=== PATIENT | female | born 1945 | race Caucasian/White ===

== ENCOUNTER 2023-10-12 13:59 | Inpatient (IN) ==
[2023-10-12] MEDS ORDERED: ONDANSETRON 4 MG/2 ML VIAL IV PRN (16:57)
[2023-10-12] MEDS ORDERED: IPRATROPIUM/ALBUTEROL 3 ML AMPUL.NEB NEB PRN (16:57)
[2023-10-12] MEDS: 0.9 % SODIUM CHLORIDE 1,000 ML IV SCH (20:04)
[2023-10-12] MEDS: 0.9 % SODIUM CHLORIDE 10 ML SYRINGE IV SCH (20:10)
[2023-10-12] MEDS: SENNOSIDES 1 TABLET PO SCH (20:17)
[2023-10-12] MEDS: hydrALAZINE 20 MG/ML VIAL IV PRN (20:17)
[2023-10-12] MEDS: LISINOPRIL 10 MG TABLET PO SCH (20:18)
[2023-10-12] MEDS: traZODone HCL 50 MG TABLET PO PRN (20:18)
[2023-10-12] MEDS: DOCUSATE SODIUM 100 MG CAPSULE PO SCH (20:18)
[2023-10-13 06:29] LABS: ALT/SGPT < 5 U/L (<40); AST/SGOT 22 U/L (<32); Albumin 3.5 gm/dL (3.2-5.2); Albumin/Globulin Ratio 1.5 (1.0-2.3); Alkaline Phosphatase 50 U/L (39-117); Bilirubin,Total 0.7 mg/dL (0.1-1.0); Blood Urea Nitrogen 13 mg/dL (8-23); Calcium 8.2 mg/dL (8.6-10.4); Carbon Dioxide 25 mmol/L (22-30); Chloride 100 mmol/L (96-108); Globulin 2.3 gm/dL (2.2-3.7); Glomerular Filtration Rate 82; Glucose 134 mg/dL (70-105)
[2023-10-13 06:55] LABS: Basophils # (Auto) 0.02 K/mcL (0.00-0.30); Basophils % (Auto) 0.4 % (0.0-2.0); Eosinophils # (Auto) 0.02 K/mcL (0.00-0.70); Eosinophils % (Auto) 0.4 % (0.0-7.0); Hematocrit 29.3 % (34.1-44.9); Hemoglobin 9.9 g/dL (11.2-15.7); Lymphocytes # (Auto) 0.87 K/mcL (1.50-4.80); Lymphocytes % (Auto) 16.4 % (15.5-49.0); Mean Corpuscular HGB Conc 33.8 g/dL (31.0-36.0); Monocytes # (Auto) 0.46 K/mcL (0.10-0.90); Monocytes % (Auto) 8.6 % (1.0-12.0); Neutrophils % (Auto) 73.8 % (38.0-78.0); Platelet Count 197 K/mcL (140-440); RBC 2.64 M/mcL (3.59-5.38); Red Cell Distribution Width 15.3 % (11.5-14.5); WBC 5.3 K/mcL (4.5-11.0)
[2023-10-13 07:13] LABS: Estimated Average Glucose(eAG) 120 mg/dL; Hemoglobin A1C 5.8 % Hgb (4.0-6.0)
[2023-10-13] MEDS: THYROID, PORK 60 MG TABLET PO SCH (07:30)
[2023-10-13] MEDS: ceFAZolin 2 GM in DEXTROSE 5% IN WATER 50 ML IV SCH ×2 (13:05→15:53)
[2023-10-13] MEDS ORDERED: fentaNYL 100 MCG/2 ML VIAL ONE (13:21)
[2023-10-13] MEDS ORDERED: DEXAMETHASONE 10 MG/ML VIAL ONE (13:29)
[2023-10-13] MEDS ORDERED: PROPOFOL 200 MG/20 ML VIAL IV ONE ×2 (13:29→14:01)
[2023-10-13] MEDS ORDERED: MAGNESIUM SULFATE 2 GM/50 ML BAG IV ONE (13:29)
[2023-10-13] MEDS ORDERED: ROPIVACAINE HCL/PF 30 ML VIAL IJ ONE (13:29)
[2023-10-13] MEDS ORDERED: TRANEXAMIC ACID 1,000 MG/10 ML VIAL ONE (13:45)
[2023-10-13] MEDS ORDERED: ONDANSETRON 4 MG/2 ML VIAL ONE (14:00)
[2023-10-13] MEDS ORDERED: BENZOCAINE/MENTHOL 1 LOZENGE PO PRN (14:08)
[2023-10-13] MEDS ORDERED: oxyCODONE/APAP 5/325MG TABLET PO PRN (14:08)
[2023-10-13] MEDS: TRANEXAMIC ACID 1,000 MG/10 ML VIAL IV ONE (14:46)
[2023-10-13] MEDS: ACETAMINOPHEN 1,000 MG/100 ML BAG IV ONE (15:53)
[2023-10-13] MEDS: LACTATED RINGERS 1,000 ML IV SCH (17:40)
[2023-10-13] MEDS: ceFAZolin 1 GM VIAL IV SCH (21:13)
[2023-10-13] MEDS: ACETAMINOPHEN 500 MG TABLET PO SCH (21:13)
[2023-10-14] MEDS: HYDROmorphone 1 MG/ML SYRINGE IV PRN (04:51)
[2023-10-14 06:10] LABS: ALT/SGPT 15 U/L (<40); AST/SGOT 35 U/L (<32); Albumin 3.2 gm/dL (3.2-5.2); Albumin/Globulin Ratio 1.5 (1.0-2.3); Alkaline Phosphatase 46 U/L (39-117); Bilirubin,Total 0.5 mg/dL (0.1-1.0); Blood Urea Nitrogen 14 mg/dL (8-23); Calcium 8.3 mg/dL (8.6-10.4); Carbon Dioxide 25 mmol/L (22-30); Chloride 102 mmol/L (96-108); Globulin 2.2 gm/dL (2.2-3.7); Glomerular Filtration Rate 70; Glucose 153 mg/dL (70-105)
[2023-10-14 06:35] LABS: Basophils # (Auto) 0.01 K/mcL (0.00-0.30); Basophils % (Auto) 0.1 % (0.0-2.0); Eosinophils # (Auto) 0 K/mcL (0.00-0.70); Eosinophils % (Auto) 0 % (0.0-7.0); Hematocrit 26.6 % (34.1-44.9); Lymphocytes # (Auto) 0.72 K/mcL (1.50-4.80); Mean Cell Volume 112.7 fL (80.0-100.0); Mean Corpuscular HGB Conc 33.8 g/dL (31.0-36.0); Mean Platelet Volume 11.4 fL (8.8-12.5); Monocytes # (Auto) 0.47 K/mcL (0.10-0.90); Monocytes % (Auto) 5.9 % (1.0-12.0); Neutrophils % (Auto) 84.5 % (38.0-78.0); Platelet Count 185 K/mcL (140-440); RBC 2.36 M/mcL (3.59-5.38); Red Cell Distribution Width 15.6 % (11.5-14.5)
[2023-10-14] MEDS: ENOXAPARIN 40 MG/0.4 ML SYRINGE SQ SCH (10:58)
[2023-10-14] MEDS: oxyCODONE IR 5 MG TABLET PO PRN (22:03)
[2023-10-15 06:26] LABS: Basophils # (Auto) 0.02 K/mcL (0.00-0.30); Basophils % (Auto) 0.4 % (0.0-2.0); Eosinophils # (Auto) 0.07 K/mcL (0.00-0.70); Eosinophils % (Auto) 1.2 % (0.0-7.0); Hematocrit 25.3 % (34.1-44.9); Hemoglobin 8.5 g/dL (11.2-15.7); Lymphocytes # (Auto) 1.05 K/mcL (1.50-4.80); Lymphocytes % (Auto) 18.6 % (15.5-49.0); Mean Cell Volume 113.5 fL (80.0-100.0); Mean Corpuscular HGB Conc 33.6 g/dL (31.0-36.0); Mean Platelet Volume 11.2 fL (8.8-12.5); Monocytes # (Auto) 0.31 K/mcL (0.10-0.90); Monocytes % (Auto) 5.5 % (1.0-12.0); Neutrophils % (Auto) 73.8 % (38.0-78.0); Platelet Count 162 K/mcL (140-440); RBC 2.23 M/mcL (3.59-5.38); Red Cell Distribution Width 15.6 % (11.5-14.5); WBC 5.7 K/mcL (4.5-11.0)
== END 2023-10-15 17:18 | DRG 482 ==
LOC: MEDSUR 15:59
PROVIDERS: ADMIT Internal Medicine; ATTEND Internal Medicine
PROC: ORIFHIP (2023-10-13 13:08)